=== PATIENT | male | born 1945 | race Caucasian/White ===

== ENCOUNTER → 2019-01-12 | Outpatient (REF) | payer MEDICARE, OTHER | END | disposition home or self-care (01) | LOC: INF 01-09 15:23 | PROVIDERS: ATTEND Nurse Practitioner Family | PROC: 3C1ZX8Z Irrigation of Indwelling Device using Irrigating Substance, External Approach (ICD-10-PCS; principal; 2019-01-12) | DX: Z45.2 Encounter for adjustment and management of vascular access device (principal) ==